=== PATIENT | female | born 1980 | race Caucasian/White ===

== ENCOUNTER 2018-12-09 20:24 | Emergency (ER) | payer BC, SELFPAY ==
[2018-12-09 20:25] VITALS: BP 157/88; PULSE 64; RESP 16; TEMP 36; O2SAT 100; BMI 21.4
--- NOTE | 2018-12-09 20:40 | RAD_ITS ---
STUDY: X-RAY - LEFT FOOT CLINICAL: Female, 38 years old. Left foot pain TECHNIQUE: 3 view(s) of the foot. COMPARISON: None. FINDINGS: Nondisplaced transverse fracture through the base of the middle phalanx of the second digit. Subjacent soft tissue swelling. Remainder is within normal limits. RAD/Foot min 3 Views IMPRESSION: As above Electronically Signed: Alber Winkler DO at 21:01 EST Tel , Service support ,
[2018-12-09 20:57] VITALS: PULSE 73; RESP 14; O2SAT 100
--- NOTE | 2018-12-09 21:15 | ED.DCSUM_ITS ---
- ER Visit Summary Date of Service: 12/09/18 Chief Complaint: Left foot pain History of Present Illness: The patient is a 38 F who stepped in a hole and rolled her left foot yesterday. She has continued pain over the distal aspect of her left foot. She tried going to work today but standing on her feet all day made the pain worse. Physical Examination: Vital signs significant for blood pressure 157/88, otherwise unremarkable. Patient is observed ambulating to room with antalgic gait. Head neck examination normal. Heart is regular rate and rhythm. Left lower extremity examination reveals ecchymosis and tenderness to the first and second toes of her left foot. There is no tenderness at the ankle or knee. She has good cap refill and sensation. Test Results: Left foot x-rays reveal nondisplaced transverse fracture to the base of the middle phalanx of the second digit. Emergency Department Course and Treatment: X-rays were reviewed with the patient. First and second toes were guerda taped together. She will be given a postop shoe. She is given work restrictions until she can wear her steel toed boots for work. She can follow with her primary care physician. She will also be given orthopedic follow-up if needed. Treatment Plan: [] Disposition: Discharge Impression: Left second toe fracture This note was generated with [employer] dictation software. It may contain incorrect words, spelling, and punctuation that were not noted in review of the chart prior to signing ED Disposition - Plan for ED Patient: Referrals: Jasbir Grady MD [Primary Care Provider] -
--- NOTE | 2018-12-09 21:15 | ED.DEP ---
ED Disposition - Plan for ED Patient: Disposition: Home or Assisted Living Instructions: ED Fx Toe Closed Prescriptions: Naproxen [Naprosyn] 500 mg PO BID PRN PRN #20 tablet PRN Reason: Pain Referrals: Jasbir Grady MD [Primary Care Provider] - 1 Week Uche Gómez MD [STAFF PHYSICIAN] - As Needed
[2018-12-09 21:28] VITALS: BP 125/78; PULSE 70; RESP 16; O2SAT 99
== END 2018-12-09 21:29 | disposition home or self-care (01) ==
PROVIDERS: Emergency Provider Emergency Medicine; Family Provider Family Medicine; PCP Family Medicine
DX: S92.912A Unspecified fracture of left toe(s), initial encounter for closed fracture (principal); W17.2XXA Fall into hole, initial encounter; Y93.9 Activity, unspecified; Y92.9 Unspecified place or not applicable; Y99.9 Unspecified external cause status; Z72.0 Tobacco use
CPT/HCPCS: 73630; 99282

== ENCOUNTER → 2018-12-17 11:35 | Outpatient (CLI) | payer BC, SELFPAY ==
[2018-12-09 20:25] VITALS: BMI 21.4
--- NOTE | 2018-12-17 11:37 | RAD_ITS ---
STUDY: X-RAY LEFT FOOT, SECOND TOE REASON FOR EXAM: Female, 38 years old. Injury week ago. TECHNIQUE: 3 view(s) of the toe were obtained. COMPARISON: None. FINDINGS: Normal visualized distal metatarsus. Normal metatarsophalangeal (M.T.P) joint. Normal interphalangeal joints. There is a nondisplaced fracture of the proximal aspect of the middle phalanx. There is no evidence of dislocation. There is soft tissue swelling. RAD/Toe(s) Min 2 Views IMPRESSION: Nondisplaced fracture of the middle phalanx. Electronically Signed: Baron Charles MD at 23:40 EST Tel , Service support ,
== END ==
LOC: MTRAD 11:36
PROVIDERS: Family Provider Family Medicine; PCP Family Medicine; Referring Provider Family Medicine; Visit Provider Family Medicine
DX: S92.912A Unspecified fracture of left toe(s), initial encounter for closed fracture (principal)
CPT/HCPCS: 73660

== ENCOUNTER → 2023-08-24 | Outpatient (CLI) | payer SELFPAY ==
[2023-08-24 15:09] LABS: Hematocrit 38.5 % (37-47); Hemoglobin 12.5 g/dL (12.0-15.0)
[2023-08-24 16:05] LABS: Alanine Aminotransfer ALT/SGPT 17 U/L (13-56); Albumin, Serum 3.6 g/dL (3.2-5.0); Creatinine, Serum 0.73 mg/dL (0.55-1.02); EST Glomerular Filtration Rate 93 mL/min (>60); Est Glom Filt Rate - Afr Amer 113 mL/min (>60); Sodium Level 137 mmol/L (136-145); Thyroid Stim Hormone (TSH) 3.67 uIU/mL (0.358-3.74)
== END | disposition home or self-care (01) ==
LOC: MFPLAB 12:08
PROVIDERS: PCP Family Medicine; Visit Provider Family Medicine
DX: M79.89 Other specified soft tissue disorders (principal)
CPT/HCPCS: 36415; 82040; 82565; 84295; 84443; 84460; 85014; 85018